=== PATIENT | female | born 2000 | race Two or more races ===

== ENCOUNTER 2025-05-21 16:58 | Emergency (ER) | payer OTHER ==
[~2025-05-21] VITALS: Ht 167.6 cm; Wt 68.0 kg
[2025-05-21 17:11] VITALS: TEMP 98.8
[2025-05-21] MEDS ORDERED: ACETAMINOPHEN ES 500 MG TABLET ONE (17:31)
[2025-05-21] MEDS ORDERED: IBUPROFEN 600 MG TABLET ONE (17:32)
[2025-05-21] MEDS: ACETAMINOPHEN ES 500 MG TABLET PO ONE (17:36)
[2025-05-21] MEDS: IBUPROFEN 600 MG TABLET PO ONE (17:36)
[2025-05-21 18:02] LABS: PLATELET COUNT (AUTO) 276 K/uL (150-450); RED BLOOD CELL COUNT(AUTO) 3.74 MIL/uL (4.0-5.2); RED CELL DISTRIBUTION WIDTH 13.1 % (11.5-15.0); WHITE BLOOD COUNT (AUTO) 6.5 K/uL (4.3-11.0)
[2025-05-21 18:11] LABS: INR 0.9 (0.91-1.10)
[2025-05-21 18:19] LABS: APPEARANCE,URINE CLEAR (CLEAR); BLOOD, URINE Small Ery/uL (NEGATIVE); LEUKOCYTE ESTERASE ,URINE Negative (NEGATIVE); UGLUCOSE Negative (NEGATIVE)
[2025-05-21 18:23] LABS: ADD URINE CULTURE NO; NITRITE, URINE NEGATIVE (NEGATIVE); PREGNANCY TEST URINE QUAL NEGATIVE (NEGATIVE); SQUAMOUS EPITHELIAL CELL,UR Few /HPF (None Seen)
[2025-05-21 18:30] LABS: CALCIUM, SERUM 9.0 mg/dL (8.5-10.1); CREATININE 0.6 mg/dL (0.6-1.3); SODIUM SERUM 142.0 mmol/L (136-145); UREA NITROGEN, BLOOD 11.0 mg/dL (7-18)
[2025-05-21] MEDS ORDERED: HYDR453.3 TP (19:24)
[2025-05-21] MEDS ORDERED: AMOX500C2 PO (19:24)
[2025-05-21 19:41] VITALS: BP 119/63; O2SAT 99
[2025-05-21 19:43] LABS: MONOTEST NEGATIVE (NEGATIVE)
== END 2025-05-21 19:42 | disposition home or self-care (01) ==
LOC: ER 17:06
DX: J02.9 Acute pharyngitis, unspecified (principal); R13.10 Dysphagia, unspecified; R21 Rash and other nonspecific skin eruption; Z79.899 Other long term (current) drug therapy; Z86.2 Personal history of diseases of the blood and blood-forming organs and certain disorders involving the immune mechanism
CPT/HCPCS: 36415; 80048-TC; 81001; 84703-TC; 85025-TC; 85730-TC; 86308-TC; 86403-TC; 87070-TC

== ENCOUNTER 2025-06-29 22:32 | Emergency (ER) | payer OTHER ==
[~2025-06-29] VITALS: Ht 170.2 cm; Wt 67.1 kg
[~2025-06-29 22:32] MED LIST: AMOX500C2 PO; HYDR453.3 TP
[2025-06-30] MEDS ORDERED: ONDANSETRON HCL/PF 4 MG/2 ML VIAL ONE (00:44)
[2025-06-30] MEDS ORDERED: MORPHINE SULFATE INJ 4 MG/ML DISP.SYRIN ONE (00:44)
[2025-06-30] MEDS: ONDANSETRON HCL/PF 4 MG/2 ML VIAL IVP ONE (00:54)
[2025-06-30] MEDS: IV NS 0.9% 1,000 ML BAG IV ONE (00:54)
[2025-06-30] MEDS: MORPHINE SULFATE INJ 2 MG/ML DISP.SYRIN IV ONE (00:55)
[2025-06-30 01:00] LABS: PLATELET COUNT (AUTO) 327 K/uL (150-450); RED BLOOD CELL COUNT(AUTO) 4.08 MIL/uL (4.0-5.2); RED CELL DISTRIBUTION WIDTH 13.2 % (11.5-15.0); WHITE BLOOD COUNT (AUTO) 6.8 K/uL (4.3-11.0)
[2025-06-30 01:23] LABS: APPEARANCE,URINE SLIGHTLY CLOUDY (CLEAR); BLOOD, URINE TRACE-INTA Ery/uL (NEGATIVE); LEUKOCYTE ESTERASE ,URINE NEGATIVE (NEGATIVE); NITRITE, URINE NEGATIVE (NEGATIVE); UGLUCOSE NEGATIVE (NEGATIVE)
[2025-06-30 01:28] LABS: PREGNANCY TEST URINE QUAL NEGATIVE (NEGATIVE)
[2025-06-30 01:34] LABS: ADD URINE CULTURE NO; SQUAMOUS EPITHELIAL CELL,UR Few /HPF (None Seen); URINE AMORPHOUS PHOSPHATES Moderate /HPF (None Seen)
[2025-06-30 01:37] LABS: ASPARTATE AMINOTRANSFERASE 17.0 U/L (15-37); CALCIUM, SERUM 9.3 mg/dL (8.5-10.1); CREATININE 0.5 mg/dL (0.6-1.3); SODIUM SERUM 139.0 mmol/L (136-145); TOTAL PROTEIN, SERUM 7.7 g/dL (6.4-8.2); UREA NITROGEN, BLOOD 10.0 mg/dL (7-18)
[2025-06-30] MEDS ORDERED: POLY119P2 PO (02:19)
[2025-06-30] MEDS ORDERED: DOCU-141 PO (02:19)
[2025-06-30 02:30] VITALS: BP 125/74; TEMP 98.2; O2SAT 98
[2025-06-30 02:39] LABS: INR 0.92 (0.91-1.10)
== END 2025-06-30 02:30 | disposition home or self-care (01) ==
LOC: ER 22:37
DX: K59.00 Constipation, unspecified (principal); R10.9 Unspecified abdominal pain; R30.0 Dysuria; Z60.2 Problems related to living alone; Z79.899 Other long term (current) drug therapy
CPT/HCPCS: 99285; 74176; 96374; 96361; 85025; 80048; 83690; 80076; 84703; 81001; 36415; 85730; J2405; J7030; J2270